=== PATIENT | male | born 1990 | race Caucasian/White ===

== ENCOUNTER 2020-04-20 03:06 | Emergency (ER) | payer BC ==
[2020-04-20 03:11] VITALS: BP 144/89; PULSE 85; RESP 20; TEMP 98
--- NOTE | 2020-04-20 03:19 | ED ---
Wound/Laceration HPI - General Chief Complaint: Wound/Laceration Stated Complaint: Lt hand lac Time Seen by Provider: 04/20/20 03:12 Source: patient Mode of arrival: ambulatory Limitations: no limitations - History of Present Illness Initial Comments: This patient is 30-year-old man who presents to have evaluation of a left hand laceration. The patient states she was attempting to catch a falling dish and when he did it cut the space between his left fourth and fifth digits. The patient denies any weakness or numbness to the left hand. He believes that his last tetanus shot was given approximately 8 years ago. He is declining to have a new tetanus shot. 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 Onset/Timin -: hour(s) Extremity Location: Left: Hand Place: home Patient Tetanus UTD: Yes Context: accidental Associated Symptoms: none Treatments Prior to Arrival: bandage - Related Data Previous Rx's Medication Instructions Recorded Azithromycin [Zithromax Z-pack] 250 mg PO DIRECTED #6 tab 04/12/15 RX: predniSONE [Deltasone] 20 mg PO BID #10 tab 04/12/15 Allergies Allergy/AdvReac Type Severity Reaction Status Date / Time Penicillins Allergy Unknown Verified 04/20/20 03:11 Childhood Review of Systems ROS Statement: Those systems with pertinent positive or pertinent negative responses have been documented in the HPI. ROS Other: All systems not noted in ROS Statement are negative. Constitutional: Denies: fever Skin: Reports: as per HPI. Denies: rash, lesions Neurological: Denies: weakness, numbness, paresthesias Hematological/Lymphatic: Denies: easy bleeding Past Medical History Past Medical History: Seizure Disorder History of Any Multi-Drug Resistant Organisms: None Reported Past Surgical History: No Surgical Hx Reported Past Psychological History: No Psychological Hx Reported, Depression Smoking Status: Never smoker Past Alcohol Use History: Occasional Past Drug Use History: None Reported General Exam Limitations: no limitations General appearance: alert, in no apparent distress Cardiovascular Exam: Present: regular rate, other (Normal radial pulse and normal capillary refill throughout the left hand) Neurological exam: Present: alert, other (There is no weakness or sensory deficit throughout the left hand). Absent: motor sensory deficit Skin exam: Present: warm, dry, other (Approximate 2 cm laceration to the interdigital space left hand, fourth to fifth digits) Course Vital Signs 04/20/20 03:07 Temperature 98 F Pulse Rate 85 Respiratory 20 Rate Blood Pressure 144/89 O2 Sat by Pulse 97 Oximetry Procedures - Laceration Laceration #1 Consent Obtained: verbal consent Indication: laceration Site: hand Size (cm): 2 Description: linear Depth: simple, single layer Anesthetic Used: lidocaine 1% Anesthesia Technique: local infiltration Amount (mls): 2 Type of Sutures: nylon Size of Sutures: 5-0 Number of Sutures: 2 Technique: simple, interrupted Patient Tolerated Procedure: well, no complications Disposition Clinical Impression: Laceration Disposition: HOME SELF-CARE Condition: Good Instructions (If sedation given, give patient instructions): Laceration (ED) Is patient prescribed a controlled substance at d/c from ED?: No Referrals: Teena Tarango DO [Primary Care Provider] - 1-2 days
[2020-04-20] MEDS: LIDOCAINE 1% INJ 10MG/ML (20 ML MDV) SQ ONE (03:25)
== END 2020-04-20 04:04 | disposition home or self-care (01) ==
LOC: EC 03:06
DX: S61.412A Laceration without foreign body of left hand, initial encounter (principal); Z88.0 Allergy status to penicillin; W26.8XXA Contact with other sharp object(s), not elsewhere classified, initial encounter; Y93.89 Activity, other specified; Y92.009 Unspecified place in unspecified non-institutional (private) residence as the place of occurrence of the external cause
CPT/HCPCS: 99282; 12001; J2001